=== PATIENT | female | born 1950 | race Caucasian/White ===

== ENCOUNTER → 2020-01-16 | Outpatient (CLI) | payer MEDICARE, BC, OTHER ==
[~2020-01-16] MED LIST: COLE3.753 PO; DICY20TA3 PO; IOHEXOL 300 MG/ML 75 ML VIAL. IV ONE; OMEP20CA16 PO; RIZA10TA PO
[2020-01-16 15:07] LABS: CREATININE 0.7 mg/dL (0.6-1.0); GFR 82.7
--- NOTE | 2020-01-17 08:36 | RAD ---
CT of the chest with contrast 01/17/2020 INDICATION: Solitary Pulmonary nodule. COMPARISON STUDY: Chest radiograph February 06, 2013. TECHNIQUE: Multidetector CT imaging of the chest was performed following the administration of IV contrast. FINDINGS: Heart size is normal. No pericardial effusion is seen. No significant mediastinal adenopathy is identified. Limited visualization of the upper abdomen demonstrates no acute abnormalities. There is no pneumothorax or significant effusion. No acute appearing focal consolidative infiltrate is identified. 5 mm subpleural nodule in the basilar left lower lobe (axial image 79). There is a second subpleural nodule in the left lower lobe measuring 3 mm in diameter (axial image 45). There are several scattered 1 to 3 mm pleural-based nodules along the fissures with configuration suggestive of small intrafissural lymph nodes. Minimal atelectasis is noted in the lung bases. No acute osseous changes are identified. IMPRESSION: Scattered subcentimeter pulmonary nodules largest measuring 5 mm in the left lower lobe. Recommend comparison with prior imaging studies if possible, based on provided history of solitary pulmonary nodule. Otherwise recommend CT surveillance per Fleischner Society guidelines. Pulmonary Nodule Followup: Fleischner Society recommendations (Radiology 2005; 237; 395-400): In a low risk patient: 4mm or less - No follow up required. >4-6mm- 12 month follow up, if unchanged, no further follow up. >6-8mm- 6-12 month follow up, then at 18-24 months if no change. >8mm- 3, 9, 24 month follow up or consideration of PET/CT. In a high risk patient: <4mm - 12 month follow up, if unchanged then no further follow up. >4-6mm- 6-12 month follow up, then at 18-24 months if no change. >6-8mm- 3-6 month follow up, then at 9-12 months and [address] DOSING PQRS STATEMENT: One or more of the following individualized dose reduction techniques were utilized for this examination: 1. Automated exposure control 2. Adjustment of the mA and/or kV according to patient size 3. Use of iterative reconstruction technique Electronically signed by: Faizan San MD (01/17/2020 8:33 AM) [id number]
== END | disposition home or self-care (01) ==
LOC: CT 14:21
PROVIDERS: ATTEND Specialist
DX: J98.11 Atelectasis (principal); R91.1 Solitary pulmonary nodule
CPT/HCPCS: 36415; 71260; 82565; Q9967

== ENCOUNTER → 2020-01-17 | Outpatient (CLI) | payer MEDICARE, BC, OTHER ==
[~2020-01-17] MED LIST changes: -IOHEXOL 300 MG/ML 75 ML VIAL. IV ONE
[2020-01-17 08:56] LABS: CALCIUM 8.6 mg/dL (8.5-10.1); CREATININE 0.8 mg/dL (0.6-1.0); GFR 70.9; POTASSIUM 4.1 mmol/L (3.5-5.1)
== END | disposition home or self-care (01) ==
LOC: LAB 08:00
PROVIDERS: ATTEND Specialist
DX: R63.4 Abnormal weight loss (principal)
CPT/HCPCS: 36415; 80048

== ENCOUNTER 2020-02-25 00:04 | Emergency (ER) | payer MEDICARE, BC, OTHER ==
[~2020-02-25] VITALS: Ht 162.6 cm; Wt 52.7 kg
[2020-02-25] MEDS: IV RINGERS SOLUTION,LACTATED 1,000 ML IV SCH ×2 (00:42→03:41)
--- NOTE | 2020-02-25 00:42 | PHYS DOC ---
Past History Past Medical History: Other Past Surgical History: Other Smoking: Non-smoker Alcohol Use: Rarely Drug Use: None General Adult HPI: HPI: ".. I think I got a bad steak sandwich.. yesterday.. it was a [employer] .. but I got sick right after eating it.. and have been vomiting.. now I got a headache from all the vomiting...". " I ve been sick the last two days... " Patient is a 69 year old female who presents with nausea, vomiting, chest pain, headache after eating a steak sandwich yesterday at [employer]. Pt rates her headace as 20/10. Patient denies intake any other questionable foods. Patient denies any trauma. Patient immunosuppression. Patient has had hypertension in the past. Patient normally follows with Dr. Elias Carmona. Patient lives with her mother of 95. No recent travel outside the [place] area. No specific ill contacts. . Patient has previous cholecystectomy for gallstones. Patient normally follows with Dr. Parry. Review of Systems: Review of Systems: Constitutional: Denies fever or chills Eyes: Denies change in visual acuity HENT: Denies nasal congestion or sore throat Respiratory: Denies cough or shortness of breath Cardiovascular: Denies chest pain or edema GI: Complains of epigastric abdominal pain, nausea, vomiting,. : Denies dysuria Musculoskeletal: Denies back pain or joint pain Integument: Denies rash Neurologic: Complains of a frontal headache,. Denies focal weakness or sensory changes Endocrine: Denies polyuria or polydipsia Lymphatic: Denies swollen glands Psychiatric: Denies depression or anxiety Heart Score: HEART Score for Chest Pain: HEART Score for Chest Pain Response (Comments) Value History Slighlty/Non-Suspicious 0 ECG Normal 0 Age > 65 2 Risk Factors 1 or 2 Risk Factors 1 Total 3 Risk Factors: Risk Factors: DM, Current or recent (<one month) smoker, HTN, HLP, family history of CAD, obesity. Risk Scores: Score 0 - 3: 2.5% MACE over next 6 weeks - Discharge Home Score 4 - 6: 20.3% MACE over next 6 weeks - Admit for Clinical Observation Score 7 - 10: 72.7% MACE over next 6 weeks - Early Invasive Strategies Family History: Family History: Noncontributory to presentation Current Medications: Current Meds: See nursing for home meds Allergies: Allergies: Allergies Coded Allergies Type Severity Reaction Last Updated Verified Sulfa (Sulfonamide Antibiotics) Allergy Intermediate Rash 12/30/13 Yes Physical Exam: PE: Constitutional: , moderate acute distress, non-toxic appearance. [] HENT: Normocephalic, atraumatic, bilateral external ears normal, oropharynx moist, no oral exudates, nose normal. [] Eyes: PERRLA, EOMI, conjunctiva normal, no discharge. [] Neck: Normal range of motion, no tenderness, supple, no stridor. [] Cardiovascular: Tachycardia heart rate regular rhythm, no murmur [] Lungs & Thorax: Bilateral breath sounds equal apex on auscultation [] Abdomen: Bowel sounds normal, soft, epigastric tenderness, no masses, no pulsatile masses. Old surgery scars. Rebound epigastric area. Old surgery scar-bladder pacer and cholecystectomy. Skin: Warm, dry, no erythema, no rash. Poor turgor Back: No tenderness, no CVA tenderness. [] Extremities: No tenderness, no cyanosis, no clubbing, ROM intact, no edema. [] No psoas sign. Neurologic: Alert and oriented X 3, moves all extremities on request, distal sensory intact,, no gross focal deficits noted. DTRs +2 patellar and brachial. Evaporator Operator Molasses equal. No drift. Right-hand dominant. Psychologic: Affect anxious, judgement normal, mood normal. [] EKG: EKG: My interpretation EKG shows a sinus tachycardia 108 bpm. No findings acute STEMI or contralateral changes. [] Radiology/Procedures: Radiology/Procedures: [][address] [address] IMAGING REPORT Signed PATIENT: RITA MERCEDES EACCOUNT: [id number] : 1950 LOCATION: ER AGE: 69 SEX: F EXAM STATUS: REG ER ORD. PHYSICIAN: ADONAY MATOS MD REASON: headache PROCEDURE: CT HEAD AND CERVICAL SPINE WO CT head without contrast. CT cervical spine without contrast PQRS statement: CT scans at this facility use dose reduction including either automated exposure control, iterative reconstructions, and /or weight based radiation dosing via mA and kV modification when appropriate to reduce radiation dose to as low as reasonably achievable. HISTORY: Headache. CT head findings: Subcentimeter hypoattenuating lesion of the right posterior frontal lobe white matter towards the vertex image 19 is indeterminate may represent small ischemic or demyelinating injury. No intracranial hemorrhage, mass, hydrocephalus or cortical infarct. Orbits, mastoids and bones are unremarkable. IMPRESSION: 1. No acute intracranial CT abnormality. 2. Subcentimeter right frontal white matter hypoattenuating lesion without surrounding edema or mass effect, this is indeterminate, likely represents an age-indeterminate ischemic or demyelinating white matter injury. A solitary small white matter mass lesion can not be excluded although the absence of surrounding edema and mass effect makes this less likely. This could be further assessed with MR imaging. CT cervical spine findings: Cranial cervical junction intact. Osteoarthritis of the C1-C2 articulation. Cervical vertebral body height and alignment intact. 2 mm anterolisthesis C4 on C5 associated with disc disease and facet arthritis. No fracture of the cervical spine. Mild apical scarring. Scattered disc protrusions as well as disc osteophyte and uncovertebral facet spurs with spinal canal and neural foraminal stenoses with probable severe canal stenosis at C3-C4 and C4-C5. Paraspinal tissues are unremarkable. IMPRESSION: No acute osseous injury of the cervical spine. Cervical disc disease as described above. Electronically signed by: Jeet Fernandez MD (02/25/2020 2:19 AM) [facility] [place]IGNED BY: JEET FERNANDEZ MD DATE: 02/25/20 0219 CC: ADONAY MATOS MD; BULL PARRY MD ~ IMAGING REPORT Signed PATIENT: RITA MERCEDES EACCOUNT: [id number] : 1950 LOCATION: ER AGE: 69 SEX: F EXAM STATUS: REG ER ORD. PHYSICIAN: ADONAY MATOS MD REASON: cp, nv PROCEDURE: ACUTE ABDOMEN SERIES PA chest and AP upright supine abdomen x-rays HISTORY: Chest pain, nausea and vomiting. FINDINGS: Heart and mediastinum unremarkable. No pneumothorax, pulmonary opacities or pleural effusions. No pneumoperitoneum. Cholecystectomy surgical clips. Left sacral nerve stimulator. There is a moderate volume of stool within the large bowel. No small bowel obstruction evident. No dilated small bowel loops or increased air-fluid levels of the bowel. Lower lumbar disc disease and facet arthritis. IMPRESSION: No acute process in the chest. No bowel obstruction. There may be mild constipation with a prominent volume of stool within the colon. Electronically signed by: Jeet Fernandez MD (02/25/2020 2:27 AM) [facility] [place] S[place] BY: JEET FERNANDEZ MD DATE: 02/25/20226 CC: ADONAY MATOS MD; BULL PARRY MD ~ Course & Med Decision Making: Course & Med Decision Making Pertinent Labs and Imaging studies reviewed. (See chart for details) Discussed presentation, testing and tx.plan with Dr. Bruce- admit with neurology consult. Pt. earlier wanted admission, but her mother age 95 called her repeatedly. Pt. now was discharge home. Risks discussed. Exhibit UCAR capacity. Impression: 1. Nausea and vomiting 2. Headache 3. Diabetes 140 4. Nonspecific hypoattenuating lesion frontal lobe 5. History of bladder stimulator 6. Constipation [] Juvencio Disclaimer: Juvencio Disclaimer: This electronic medical record was generated, in whole or in part, using a voice recognition dictation system. Departure Departure: Disposition: 01 DC HOME SELF CARE/HOMELESS Condition: STABLE Referrals: BULL PARRY MD (PCP) [facility] Disclaimer This chart was dictated in whole or in part using Voice Recognition software in a busy, high-work load, and often noisy Emergency Department environment. It may contain unintended and wholly unrecognized errors or omissions. ADONAY MATOS MD Feb 25, 2020 00:42
[2020-02-25] MEDS ORDERED: ONDANSETRON PF 4 MG/2 ML VIAL. IVP ONE ×3 (00:45→03:15)
[2020-02-25] MEDS ORDERED: ASPIRIN CHEWABLE 81 MG TABLET. PO ONE (01:00)
[2020-02-25] MEDS ORDERED: IV RINGERS SOLUTION,LACTATED 1,000 ML IV ONE (01:00)
[2020-02-25 01:06] LABS: BASO % 0 % (0-3); EOS % 0 % (0-3); HEMATOCRIT 39.2 % (36.0-47.0); HEMOGLOBIN 12.9 g/dL (12.0-15.5); LYMPH % 16 % (24-48); MEAN CORPUSCULAR HEMOGLOBIN 31 pg (25-35); MEAN CORPUSCULAR HGB CONC 33 g/dL (31-37); MEAN CORPUSCULAR VOLUME 94 fL (79-100); MONO # 0.2 x10^3/uL (0.0-1.1); MONO % 4 % (0-9); NEUT # 4.9 x10^3uL (1.8-7.7); NEUT % 80 % (31-73); PLATELET COUNT 204 x10^3/uL (140-400); RED BLOOD COUNT 4.16 x10^6/uL (3.50-5.40); RED CELL DISTRIBUTION WIDTH 13.5 % (11.5-14.5); WHITE BLOOD COUNT 6.1 x10^3/uL (4.0-11.0)
[2020-02-25 01:13] LABS: CALCIUM 8.9 mg/dL (8.5-10.1); CREATININE 0.7 mg/dL (0.6-1.0); GFR 82.7; POTASSIUM 3.9 mmol/L (3.5-5.1)
[2020-02-25 01:30] LABS: ALBUMIN 3.9 g/dL (3.4-5.0); DIRECT BILIRUBIN 0.1 mg/dL (0.0-0.2); MAGNESIUM 2.3 mg/dL (1.8-2.4); TOTAL BILIRUBIN 0.3 mg/dL (0.2-1.0); TOTAL PROTEIN 7.4 g/dL (6.4-8.2)
--- NOTE | 2020-02-25 01:43 | EKG ---
[facility] ED [facility] [address] [place] [id number] Test Date: 2020-02-25 Test Time: 00:42:51 Pat Name: RITA MERCEDES Department: Room: Gender: F Senior Qc Technician: YUMIKO : 1950 Requested By: ADONAY MATOS Order Number: [id number] Reading MD: Measurements Intervals Edison Rate: 108 P: 54 LA: 164 QRS: 64 QRSD: 76 T: 64 QT: 334 QTc: 451 Interpretive Statements SINUS TACHYCARDIA S1,S2,S3 PATTERN NO SPECIFIC ECG ABNORMALITIES RI6.02 No previous ECG available for comparison
--- NOTE | 2020-02-25 02:22 | RAD ---
CT head without contrast. CT cervical spine without contrast PQRS statement: CT scans at this facility use dose reduction including either automated exposure control, iterative reconstructions, and /or weight based radiation dosing via mA and kV modification when appropriate to reduce radiation dose to as low as reasonably achievable. HISTORY: Headache. CT head findings: Subcentimeter hypoattenuating lesion of the right posterior frontal lobe white matter towards the vertex image 19 is indeterminate may represent small ischemic or demyelinating injury. No intracranial hemorrhage, mass, hydrocephalus or cortical infarct. Orbits, mastoids and bones are unremarkable. IMPRESSION: 1. No acute intracranial CT abnormality. 2. Subcentimeter right frontal white matter hypoattenuating lesion without surrounding edema or mass effect, this is indeterminate, likely represents an age-indeterminate ischemic or demyelinating white matter injury. A solitary small white matter mass lesion can not be excluded although the absence of surrounding edema and mass effect makes this less likely. This could be further assessed with MR imaging. CT cervical spine findings: Cranial cervical junction intact. Osteoarthritis of the C1-C2 articulation. Cervical vertebral body height and alignment intact. 2 mm anterolisthesis C4 on C5 associated with disc disease and facet arthritis. No fracture of the cervical spine. Mild apical scarring. Scattered disc protrusions as well as disc osteophyte and uncovertebral facet spurs with spinal canal and neural foraminal stenoses with probable severe canal stenosis at C3-C4 and C4-C5. Paraspinal tissues are unremarkable. IMPRESSION: No acute osseous injury of the cervical spine. Cervical disc disease as described above. Electronically signed by: Meet Fernandez MD (02/25/2020 2:19 AM) [facility]
--- NOTE | 2020-02-25 02:30 | RAD ---
PA chest and AP upright supine abdomen x-rays HISTORY: Chest pain, nausea and vomiting. FINDINGS: Heart and mediastinum unremarkable. No pneumothorax, pulmonary opacities or pleural effusions. No pneumoperitoneum. Cholecystectomy surgical clips. Left sacral nerve stimulator. There is a moderate volume of stool within the large bowel. No small bowel obstruction evident. No dilated small bowel loops or increased air-fluid levels of the bowel. Lower lumbar disc disease and facet arthritis. IMPRESSION: No acute process in the chest. No bowel obstruction. There may be mild constipation with a prominent volume of stool within the colon. Electronically signed by: Meet Fernandez MD (02/25/2020 2:27 AM) [facility]
[2020-02-25 02:59] LABS: BACTERIA,URINE 0 /HPF (0-FEW); BARBITURATES NEG (NEG); BENZODIAZEPINES NEG (NEG); BILIRUBIN,URINE NEG (NEG); CANNABINOIDS NEG (NEG); CLARITY,URINE CLEAR; COCAINE NEG (NEG); COLOR,URINE YELLOW; GLUCOSE,URINE NEG (NEG); METHADONE NEG (NEG); NITRITE,URINE NEG (NEG); OPIATES NEG (NEG); PHENCYCLIDINE NEG (NEG); RBC,URINE OCC /HPF (0-2); SQUAMOUS EPITHELIAL CELL,UR OCC /LPF; UROBILINOGEN,URINE 0.2 mg/dL (0.2 mg/dL); WBC,URINE RARE /HPF (0-4)
[2020-02-25 03:02] LABS: AMPHETAMINE/METHAMPHETAMINE NEG (NEG)
[2020-02-25] MEDS ORDERED: IV RINGERS SOLUTION,LACTATED 1,000 ML IV SCH (03:15)
[2020-02-25] MEDS ORDERED: ONDANSETRON PF 4 MG/2 ML VIAL. IVP PRN (03:15)
[2020-02-25 03:30] VITALS: BP 152/93
[2020-02-25] MEDS ORDERED: OMEP40CA45 PO (03:46)
[2020-02-25] MEDS ORDERED: vitamin D3 PO (03:46)
[2020-02-25] MEDS ORDERED: LINA290C PO (03:46)
[2020-02-25] MEDS ORDERED: SOLI10TA2 PO (03:46)
[2020-02-25] MEDS ORDERED: SUCR1TAB35 PO (03:47)
[2020-02-25] MEDS ORDERED: IPRATRPIUM/ALBUTEROL 0.5/2.5MG 3 ML NEBU. NEB SCH (08:00)
== END 2020-02-25 03:55 | disposition home or self-care (01) ==
LOC: ER 00:04
DX: K59.00 Constipation, unspecified (principal); R11.2 Nausea with vomiting, unspecified; R51.9 Headache, unspecified; R10.13 Epigastric pain; E11.9 Type 2 diabetes mellitus without complications; R91.1 Solitary pulmonary nodule; R07.9 Chest pain, unspecified; Z88.2 Allergy status to sulfonamides
CPT/HCPCS: 36415; 70450; 72125; 74022; 80048; 80076; 80307; 81001; 82150; 82550; 83690; 83735; 83880; 84443; 84484; 85025; 85379; 85610; 85730; 86705; 86709; 86803; 87340; 93005; 96361; 96374; 96375; 96376; 99285; J2405; J3010; J7120

== ENCOUNTER 2020-06-25 22:56 | Emergency (ER) | payer MEDICARE, BC, OTHER ==
[~2020-06-25] VITALS: Ht 162.6 cm; Wt 50.0 kg
[~2020-06-25 22:56] MED LIST changes: +LINA290C PO; +OMEP40CA45 PO; +SOLI10TA2 PO; +SUCR1TAB35 PO; +vitamin D3 PO
[2020-06-25] MEDS ORDERED: HYDR-1179 PO (23:58)
[2020-06-26] MEDS ORDERED: ONDANSETRON PF 4 MG/2 ML VIAL. IVP ONE
[2020-06-26] MEDS ORDERED: IV RINGERS SOLUTION,LACTATED 1,000 ML IV SCH
--- NOTE | 2020-06-26 00:27 | RAD ---
RS Compliance Statement: One or more of the following individualized dose reduction techniques were utilized for this examinat ion: 1. Automated exposure control 2. Adjustment of the mA and/or kV according to patient size 3. Use of iterative reconstruction technique CT head without contrast 06/25/2020 12:02 AM INDICATION: Pain COMPARISON: CT head 02/25/2020 TECHNIQUE: Multiple axial CT images of the head were obtained from skull base through the vertex with out intravenous contrast. FINDINGS: Head: Ventricles, sulci and basal cisterns are within normal limits. There is no hydrocephalus. Henley-white matter differentiation is normal. There is no acute intracranial hemorrhage. There is no mass, mass e ffect or midline shift. Posterior fossa is normal in appearance. Visualized portions of the orbits are normal. Paranasal sinuses are well aerated. Mastoid air cells a re well aerated. Scalp and calvaria are normal. IMPRESSION: No acute intracranial hemorrhage. Electronically signed by: Scarlett Kaplan MD (06/26/2020 12:25 AM) [facility]
[2020-06-26] MEDS ORDERED: KETOROLAC 30 MG/ML VIAL. IVP ONE (00:45)
[2020-06-26 00:51] VITALS: BP 158/90
[2020-06-26 00:54] LABS: BASO % 0 % (0-3); EOS % 0 % (0-3); HEMOGLOBIN 12.6 g/dL (12.0-15.5); LYMPH # 0.8 x10^3/uL (1.0-4.8); LYMPH % 17 % (24-48); MEAN CORPUSCULAR HEMOGLOBIN 31 pg (25-35); MEAN CORPUSCULAR HGB CONC 33 g/dL (31-37); MEAN CORPUSCULAR VOLUME 93 fL (79-100); MONO # 0.2 x10^3/uL (0.0-1.1); MONO % 5 % (0-9); NEUT # 3.5 x10^3uL (1.8-7.7); NEUT % 78 % (31-73); PLATELET COUNT 223 x10^3/uL (140-400); RED BLOOD COUNT 4.09 x10^6/uL (3.50-5.40); WHITE BLOOD COUNT 4.5 x10^3/uL (4.0-11.0)
[2020-06-26 01:00] LABS: ANION GAP 8 (6-14); BLOOD UREA NITROGEN 12 mg/dL (7-20); CALCIUM 8.9 mg/dL (8.5-10.1); CARBON DIOXIDE 26 mmol/L (21-32); CHLORIDE 104 mmol/L (98-107); CREATININE 0.7 mg/dL (0.6-1.0); GFR 82.7; GLUCOSE 125 mg/dL (70-99); POTASSIUM 3.7 mmol/L (3.5-5.1); SODIUM 138 mmol/L (136-145)
[2020-06-26 01:06] LABS: ALBUMIN 3.6 g/dL (3.4-5.0); ALK PHOS 74 U/L (46-116); ALT (SGPT) 13 U/L (14-59); AST (SGOT) 14 U/L (15-37); DIRECT BILIRUBIN 0.1 mg/dL (0.0-0.2); TOTAL BILIRUBIN 0.4 mg/dL (0.2-1.0)
[2020-06-26 01:07] LABS: BARBITURATES NEG (NEG); BENZODIAZEPINES NEG (NEG); CANNABINOIDS NEG (NEG); COCAINE NEG (NEG); METHADONE NEG (NEG); OPIATES NEG (NEG); PHENCYCLIDINE NEG (NEG)
[2020-06-26 01:10] LABS: BACTERIA,URINE 0 /HPF (0-FEW); BILIRUBIN,URINE NEG (NEG); CLARITY,URINE CLEAR; COLOR,URINE YELLOW; GLUCOSE,URINE NEG (NEG); NITRITE,URINE NEG (NEG); RBC,URINE OCC /HPF (0-2); UROBILINOGEN,URINE 0.2 mg/dL (0.2 mg/dL); WBC,URINE OCC /HPF (0-4)
[2020-06-26 01:12] LABS: C REACTIVE PROTEIN < 0.5 mg/L (0-3.3)
[2020-06-26 01:12] LABS: AMPHETAMINE/METHAMPHETAMINE NEG (NEG)
[2020-06-26] MEDS ORDERED: ONDA4TAB7 PO (01:14)
--- NOTE | 2020-06-26 02:32 | PHYS DOC ---
Past History Past Medical History: Constipation, Gallstones, GERD, Migraines, Other Additional Past Medical Histor: vit D deficiency; overactive bladder; fx of lt foot; lt knee gives out, MCNAMARA Past Surgical History: Cholecystectomy, Hysterectomy, Other Additional Past Surgical Histo: repair of lt fractured foot (screws) Smoking: Non-smoker Alcohol Use: None Drug Use: None General Adult EDM: Chief Complaint: HEADACHE HPI: HPI: ".. I ve had this headache the last couple days.. liset frontal.. just not gotten better....".." The last time I got one like this was Feb.... last year.. after some vomiting..." Patient is a 69- year old female who presents with above hx and complaints frontal headache. Patient states she has had symptoms in the last couple days. No recent travel. No severe ill contacts. Normally follows with Dr. Daley. Has taken some Tylenol headache eysn-szy-[id number] meds with no relief. No recent changes other meds or foods. No history of trauma. Normally her headaches are controlled with [id number] meds. Patient has had migraine headaches before. Review of Systems: Review of Systems: Constitutional: Denies fever or chills Eyes: Denies change in visual acuity HENT: Denies nasal congestion or sore throat Respiratory: Denies cough or shortness of breath Cardiovascular: Denies chest pain or edema GI: Denies abdominal pain, , vomiting, bloody stools or diarrhea. Complains of nausea : Denies dysuria Musculoskeletal: Denies back pain or joint pain Integument: Denies rash Neurologic: Complains of headache. Denies focal weakness or sensory changes Endocrine: Denies polyuria or polydipsia Lymphatic: Denies swollen glands Psychiatric: Denies depression or anxiety Family History: Family History: Noncontributory to presentation Current Medications: Current Meds: Current Medications Medications (Trade) Dose Ordered Sig/Anne Start Time Stop Time Status Last Admin Dose Admin Ketorolac Tromethamine (Toradol 30mg Vial) 30 mg 1X ONCE 06/26/20 00:45 06/26/20 01:51 DC 06/26/20 00:47 30 MG Lactated Ringer's 1,000 ml @ 100 mls/hr Q10H 06/26/20 00:00 06/26/20 02:02 DC 06/26/20 00:46 100 MLS/HR Ondansetron HCl (Zofran) 8 mg 1X ONCE 06/26/20 00:00 06/26/20 00:01 DC 06/26/20 00:46 8 MG Allergies: Allergies: Allergies Coded Allergies Type Severity Reaction Last Updated Verified Sulfa (Sulfonamide Antibiotics) Allergy Intermediate Rash 06/25/20 Yes Physical Exam: PE: Constitutional: Well developed, well nourished, no acute distress, non-toxic appearance. [] HENT: Normocephalic, atraumatic, bilateral external ears normal, oropharynx moist, no oral exudates, nose normal. Temporal arteries are nontender. Percussion of sinuses no focal areas of tenderness. Eyes: PERRLA, EOMI, conjunctiva normal, no discharge. [Masses Neck: Normal range of motion, no tenderness, supple, no stridor. [] Cardiovascular:Heart rate regular rhythm, no murmur [] Lungs & Thorax: Bilateral breath sounds equal apex on auscultation [] Abdomen: Bowel sounds normal, soft, no tenderness, no masses, no pulsatile masses. Old surgery scars. Skin: Warm, dry, no erythema, no rash. Poor turgor Back: No tenderness, no CVA tenderness. [] Extremities: No tenderness, no cyanosis, no clubbing, ROM intact, no edema. No cording appreciated arthritic changes. Neurologic: Alert and oriented X 3, moves all extremities on request, has distal sensory,, no focal deficits noted. DTRs +2 patella and brachial. Sound Editor equal. Ambulatory without problems. Psychologic: Affect anxious, judgement normal, mood normal. [] Current Patient Data: Labs: Laboratory Tests Test 06/26/20 00:35 06/26/20 00:50 White Blood Count 4.5 x10^3/uL (4.0-11.0) Red Blood Count 4.09 x10^6/uL (3.50-5.40) Hemoglobin 12.6 g/dL (12.0-15.5) Hematocrit 38.0 % (36.0-47.0) Mean Corpuscular Volume 93 fL (79-100) Mean Corpuscular Hemoglobin 31 pg (25-35) Mean Corpuscular Hemoglobin Concent 33 g/dL (31-37) Red Cell Distribution Width 14.0 % (11.5-14.5) Platelet Count 223 x10^3/uL (140-400) Neutrophils (%) (Auto) 78 % (31-73) H Lymphocytes (%) (Auto) 17 % (24-48) L Monocytes (%) (Auto) 5 % (0-9) Eosinophils (%) (Auto) 0 % (0-3) Basophils (%) (Auto) 0 % (0-3) Neutrophils # (Auto) 3.5 x10^3uL (1.8-7.7) Lymphocytes # (Auto) 0.8 x10^3/uL (1.0-4.8) L Monocytes # (Auto) 0.2 x10^3/uL (0.0-1.1) Eosinophils # (Auto) 0.0 x10^3/uL (0.0-0.7) Basophils # (Auto) 0.0 x10^3/uL (0.0-0.2) Sodium Level 138 mmol/L (136-145) Potassium Level 3.7 mmol/L (3.5-5.1) Chloride Level 104 mmol/L (98-107) Carbon Dioxide Level 26 mmol/L (21-32) Anion Gap 8 (6-14) Blood Urea Nitrogen 12 mg/dL (7-20) Creatinine 0.7 mg/dL (0.6-1.0) Estimated GFR (Cockcroft-Gault) 82.7 Glucose Level 125 mg/dL (70-99) H Calcium Level 8.9 mg/dL (8.5-10.1) Total Bilirubin 0.4 mg/dL (0.2-1.0) Direct Bilirubin 0.1 mg/dL (0.0-0.2) Aspartate Amino Transferase (AST) 14 U/L (15-37) L Alanine Aminotransferase (ALT) 13 U/L (14-59) L Alkaline Phosphatase 74 U/L (46-116) Troponin I Quantitative < 0.017 ng/mL (0-0.055) C-Reactive Protein < 0.5 mg/L (0-3.3) Total Protein 7.0 g/dL (6.4-8.2) Albumin 3.6 g/dL (3.4-5.0) Urine Collection Type Unknown Urine Color Yellow Urine Clarity Clear Urine pH 6.5 Urine Specific [place] 1.020 Urine Protein Neg (NEG-TRACE) Urine Glucose (UA) Neg mg/dL (NEG) Urine Ketones (Stick) Neg mg/dL (NEG) Urine Blood Trace (NEG) Urine Nitrite Neg (NEG) Urine Bilirubin Neg (NEG) Urine Urobilinogen Dipstick 0.2 mg/dL (0.2 mg/dL) Urine Leukocyte Esterase Neg (NEG) Urine RBC Occ /HPF (0-2) Urine WBC Occ /HPF (0-4) Urine Squamous Epithelial Cells None /LPF Urine Bacteria 0 /HPF (0-FEW) Urine Opiates Screen Neg (NEG) Urine Methadone Screen Neg (NEG) Urine Barbiturates Neg (NEG) Urine Phencyclidine Screen Neg (NEG) Urine Amphetamine/Methamphetamine Neg (NEG) Urine Benzodiazepines Screen Neg (NEG) Urine Cocaine Screen Neg (NEG) Urine Cannabinoids Screen Neg (NEG) Urine Ethyl Alcohol Neg (NEG) Vital Signs: Vital Signs Date Time Temp Pulse Resp B/P (MAP) Pulse Ox O2 Delivery O2 Flow Rate FiO2 06/26/20 00:51 87 22 158/90 (112) 06/26/20 00:27 95 06/25/20 23:32 97.9 Room Air EKG: EKG: My interpretation EKG shows a sinus rhythm at 83 bpm. There is nonspecific contour changes. But no findings of acute STEMI of contralateral changes. [] Radiology/Procedures: Radiology/Procedures: [][address] [address] IMAGING REPORT Signed PATIENT: RITA MERCEDES EACCOUNT: [id number] : 1950 LOCATION: ER AGE: 69 SEX: F EXAM STATUS: REG ER ORD. PHYSICIAN: ADONAY MATOS MD REASON: pain PROCEDURE: CT HEAD WO CONTRAST PQRS Compliance Statement: One or more of the following individualized dose reduction techniques were utilized for this examination: 1. Automated exposure control 2. Adjustment of the mA and/or kV according to patient size 3. Use of iterative reconstruction technique CT head without contrast 06/25/2020 12:02 AM INDICATION: Pain COMPARISON: CT head 02/25/2020 TECHNIQUE: Multiple axial CT images of the head were obtained from skull base through the vertex without intravenous contrast. FINDINGS: Head: Ventricles, sulci and basal cisterns are within normal limits. There is no hydrocephalus. Henley-white matter differentiation is normal. There is no acute intracranial hemorrhage. There is no mass, mass effect or midline shift. Posterior fossa is normal in appearance. Visualized portions of the orbits are normal. Paranasal sinuses are well aerated. Mastoid air cells are well aerated. Scalp and calvaria are normal. IMPRESSION: No acute intracranial hemorrhage. Electronically signed by: Gabrielle Bridges MD (06/26/2020 12:25 AM) [facility] DICTATED AND SIGNED BY: GABRIELLE BRIDGES MD DATE: 06/26/20 0024 CC: ADONAY MATOS MD; BULL WHALEN MD ~MTH0 0 Heart Score: HEART Score for Chest Pain: HEART Score for Chest Pain Response (Comments) Value History Slighlty/Non-Suspicious 0 ECG Normal 0 Age > 65 2 Risk Factors 1 or 2 Risk Factors 1 Troponin < Normal Limit 0 Total 3 Risk Factors: Risk Factors: DM, Current or recent (<one month) smoker, HTN, HLP, family history of CAD, obesity. Risk Scores: Score 0 - 3: 2.5% MACE over next 6 weeks - Discharge Home Score 4 - 6: 20.3% MACE over next 6 weeks - Admit for Clinical Observation Score 7 - 10: 72.7% MACE over next 6 weeks - Early Invasive Strategies Course & Med Decision Making: Course & Med Decision Making Pertinent Labs and Imaging studies reviewed. (See chart for details) Discussed risks and benefits of spinal tap. Patient declined spinal tap at this time. Patient to take Zofran 8 mg up to 4 times a day for active nausea and vomiting. May take Vicoprofen up to 4 times a day for headache. Follow-up with Dr. Elias Sepulveda. Review ED work-up. Return if any concerns. If having more frequenght migraines may consider follow-up with neurology. Return if any co ncerns. [] Impression: 1. Migraine Headache 2. Viral syndrome Juvencio Disclaimer: Juvencio Disclaimer: This electronic medical record was generated, in whole or in part, using a voice recognition dictation system. Departure Departure: Impression: Primary Impression: Migraine Disposition: 01 DC HOME SELF CARE/HOMELESS Condition: GUARDED Patient Instructions: Migraine Headache, [id number] Additional Instructions: Push fluids. Take tylenol and ibuprofen for pain. Zofran 8 mg up 4 x day for headache. Marked pain take Vicoprofen. Have Sohan review ED work up. Scripts Ondansetron Hcl (ZOFRAN) 4 Mg Tablet 8 MG PO QIDPRN PRN for NAUSEA/VOMITING, #30 TAB Prov: ADONAY MATOS MD 06/26/20 Hydrocodone/Ibuprofen (HYDROCODONE-IBUPROFEN 7.5-200 ) 1 Each Tablet 1 TAB PO PRN Q6HRS PRN for PAIN, #30 TAB 0 Refills Prov: ADONAY MATOS MD 06/25/20 Dragon Disclaimer This chart was dictated in whole or in part using Voice Recognition software in a busy, high-work load, and often noisy Emergency Department environment. It may contain unintended and wholly unrecognized errors or omissions. ADONAY MATOS MD Jun 26, 2020 02:32
--- NOTE | 2020-06-26 05:01 | EKG ---
[facility] ED [facility] [address] [place] [id number] Test Date: 2020-06-26 Test Time: 00:01:31 Pat Name: RITA MERCEDES Department: Room: Gender: F Enterprise Manager: : 1950 Requested By: ADONAY MATOS Order Number: [id number] Reading MD: Sukumar Arvizu Measurements Intervals [place] Rate: 83 P: 66 CA: 158 QRS: 41 QRSD: 70 T: 54 QT: 364 QTc: 433 Interpretive Statements SINUS RHYTHM QRS(T) CONTOUR ABNORMALITY CONSISTENT WITH ANTEROSEPTAL INFARCT AGE UNDETERMINED ABNORMAL ECG Electronically Signed On 06-26-2020 14:40:18 PRE BILLING SPECIALIST by Sukumar Arvizu
== END 2020-06-26 01:40 | disposition home or self-care (01) ==
LOC: ER 22:56
DX: G43.909 Migraine, unspecified, not intractable, without status migrainosus (principal); B34.9 Viral infection, unspecified; K21.9 Gastro-esophageal reflux disease without esophagitis; Z88.2 Allergy status to sulfonamides
CPT/HCPCS: 36415; 70450; 80048; 80076; 80307; 81001; 84484; 85025; 86140; 93005; 94640; 96361; 96374; 96375; 99285; J1885; J2405; J7120

== ENCOUNTER → 2021-06-11 | Outpatient (CLI) | payer MEDICARE, BC, OTHER ==
[~2021-06-11] MED LIST changes: +DICY20TA PO; -DICY20TA3 PO; +HYDR-1179 PO; -OMEP40CA45 PO; +OMEP40CA7 PO; +ONDA4TAB7 PO
--- NOTE | 2021-06-11 11:52 | RAD ---
EXAM: DUAL ENERGY X-RAY ABSORPTIOMETRY (DEXA). HISTORY: Postmenopausal screening. FINDINGS: The lowest measured T-score is -3.4 in the right hip, based on a bone mineral density of 0. 537 g/cm^2. Refer to the worksheets for full detail. No comparison examinations are available. IMPRESSION: 1. Low bone mass. Bone mineral density yields a T-score between -1.0 and -2.5. Fracture risk is incre ased. 2. FRAX report: Not calculated. METHODOLOGY: Dual energy x-ray absorptiometry was performed to measure bone mineral density. The foll owing analysis is based on the 2019 Official Positions of the International Society for Clinical Dens itometry: Measurements of the hips and the average of L1-L4 are preferred. When the spine and/or hip cannot be feasibly measured or interpreted, or in the setting of hyperparathyroidism, distal radial bone minera l density may be measured. The lumbar spine T-score is based on the average bone mineral density of L1-L4. In the setting of art ifact or anatomic abnormality, some lumbar levels may be excluded, and the remaining levels used for calculation. A single lumbar level is not used for diagnosis, and if only a single level is available for assessment, another anatomic site will be used to assign a diagnosis. The hip T-score is based on the bone mineral density measurement of the femoral neck or total proxima l femur of either side, whichever is lowest. Bilateral mean values are not used for diagnosis. The forearm T-score is derived from 33% of the distal radius of the nondominant forearm. Electronically signed by: Ayleen Waller MD (06/11/2021 11:49 AM) [id number]
== END ==
LOC: DXRAD 10:17
PROVIDERS: ATTEND Specialist
DX: M85.88 Other specified disorders of bone density and structure, other site (principal); M81.0 Age-related osteoporosis without current pathological fracture
CPT/HCPCS: 77080